=== PATIENT | female | born 1950 | race Caucasian/White ===

== ENCOUNTER 2017-01-09 15:08 | Inpatient (IN) | payer BC ==
[~2017-01-09] VITALS: Ht 152.4 cm; Wt 49.9 kg
[2017-01-09 16:05] VITALS: BP 157/89; PULSE 100; RESP 18
[2017-01-09] MEDS ORDERED: HYDROCODONE/HOMATROPINE 5ML CUP PO PRN (18:00)
[2017-01-09] MEDS ORDERED: MAGNESIUM HYDROXIDE 30ML CUP PO PRN (18:00)
[2017-01-09] MEDS ORDERED: ACETAMINOPHEN 325 MG TAB PO PRN (18:00)
[2017-01-09] MEDS ORDERED: ALPRAZOLAM 0.5 MG TAB PO PRN (18:00)
[2017-01-09] MEDS ORDERED: HYDROCODONE/APAP (10/325) TAB PO PRN (18:00)
[2017-01-09 18:58] LABS: ADD SCAN DIFF NO
[2017-01-09 19:14] LABS: ALBUMIN 4.7 g/dl (3.3-4.9); POTASSIUM 3.2 mmol/L (3.5-5.1)
[2017-01-09 19:16] LABS: CREATININE 0.73 mg/dl (0.44-1.00)
[2017-01-09 19:17] LABS: ALBUMIN/GLOBULIN RATIO 1.34; BILIRUBIN,INDIRECT 1.1 mg/dl (0-1.1); BILIRUBIN,TOTAL 1.1 mg/dl (0.2-1.3); CALCIUM 9.4 mg/dl (8.4-10.2); TOTAL PROTEIN 8.2 g/dl (6.1-8.1)
[2017-01-09 19:28] LABS: CHOL/HDL RATIO 2.4 RATIO
[2017-01-09 19:48] LABS: CARCINOEMBRYONIC ANTIGEN 1.1 ng/ml (0.0-5.0)
[2017-01-09 19:52] LABS: CANCER ANTIGEN 19-9 13.5 U/ml (0.0-37.0)
[2017-01-09 19:53] LABS: THYROID STIMULATING HORMONE 0.952 MIU/L (0.465-4.680)
[2017-01-09 20:42] LABS: TIME 2035
[2017-01-09 21:18] VITALS: BP 146/83; RESP 16
[2017-01-09 22:40] LABS: ADD UMIC NO; URINE BILIRUBIN (Dip) NEGATIVE (NEGATIVE); URINE BLOOD (Dip) NEGATIVE (NEGATIVE); URINE COLOR YELLOW (YELLOW); URINE GLUCOSE (Dip) NEGATIVE (NEGATIVE); URINE KETONES (Dip) TRACE (NEGATIVE); URINE LEUKOCYTE ESTERASE (Dip) NEGATIVE (NEGATIVE); URINE NITRITE (Dip) NEGATIVE (NEGATIVE); URINE TOTAL PROTEIN (Dip) NEGATIVE (NEGATIVE); URINE UROBILINOGEN (Dip) 0.2 E.U./dL (0.1-1.0)
[2017-01-09] MEDS: ZOLPIDEM 5 MG TAB PO PRN (23:12)
[2017-01-10] MEDS ORDERED: PROMETHAZINE/CODEINE 5ML CUP PO PRN (01:30)
--- NOTE | 2017-01-10 03:18 | PN ---
DATE: The patient is admitted today because of severe cough for the past 5 weeks. The patient had a chest x-ray taken which showed a possibility of chronic obstructive bronchopulmonary disease; however, th is did not explain her symptoms, so a CAT scan of her chest was performed which revealed possible in filtrative nodules. The patient has a history of breast cancer and it is suspected that she may hav e a pulmonary metastasis. The patient accordingly is being hospitalized at this time because of inc essant persistent cough which is fatiguing the patient and also to have her see a professional wrestler an d have a definitive diagnosis made as to what these nodules on her lung that are seen on CAT scan. PHYSICAL EXAMINATION GENERAL: The patient is alert and wake, and she feels well except for the cough, but she does feel weak. CHEST: Clear to A and P. HEART: Normal sinus rhythm. ABDOMEN: Liver, kidneys and spleen are not palpable. Bowel sounds are normal. There are no intraa bdominal masses or bruits. EXTREMITIES: No ankle edema. VITAL SIGNS: She is afebrile and her blood pressure is 157/89. LABORATORY DATA: Sodium is 143, potassium is 3.2, chloride is 102, carbon dioxide is 26, BUN is 17, creatinine is 0.73, glucose is 131, calcium is 9.4. TSH is normal. CA19-9 is normal at 13.5. CEA is normal at 1.1. Urine is clear. The patient to be seen by Dr. Carrillo in pulmonary consultation tomorrow and to see what further sebastian t needs to be done to determine the nature of the nodules found in her lung with the CAT scan. Dictated By: IMER MEYERS/HELEN Conf#: [id number] DID#: [id number]
--- NOTE | 2017-01-10 06:13 | RADRPT ---
PROCEDURE: XR Chest. CLINICAL INDICATION: Chest pain TECHNIQUE: A single AP view of the chest was obtained. COMPARISON: None. FINDINGS: No focal airspace opacification, pleural effusion or pneumothorax is seen. There is a 3 mm granuloma within the right lower lobe. The cardiomediastinal silhouette is within normal limits for size. T he osseous structures are unremarkable. IMPRESSION: 1. No radiographic evidence of acute cardiopulmonary disease. 2. Right lower lobe 3 mm granuloma. RPTAT: HH .Stacey Garcia MD, MD Date Time Electronically viewed and signed by .Stacey Garcia MD, on 01/10/2017 06:13 .G/
[2017-01-10 07:39] VITALS: BP 155/82; RESP 18
--- NOTE | 2017-01-10 13:53 | CONS ---
DATE OF ADMISSION: 01/09/2017 DATE OF CONSULTATION: TYPE OF CONSULTATION: Pulmonary. REASON FOR CONSULTATION: Abnormal chest CT. Thank you, Dr. Gleason, for this consultation. HISTORY OF PRESENT ILLNESS: This is a pleasant 66-year-old lady who has a remote history of left br east cancer with lumpectomy and localized radiation performed approximately 15 years ago who present s with a 5 week history of nonproductive cough which has been persistent and has no hemoptysis, no h ematemesis, no fever, no chills. No recent travel history. She has no prior history of TB that she is aware of and has been PPD negative in the past. PAST MEDICAL HISTORY: Breast cancer. SOCIAL HISTORY: She is a nonsmoker, no alcohol, no history of drug use. FAMILY HISTORY: Noncontributory. SYSTEMS REVIEW: A 12-point review of systems negative other than that mentioned above. PHYSICAL EXAMINATION: GENERAL: Well-nourished, well-developed lady, comfortable at rest, talking in full and complete sen tences. Currently afebrile. VITAL SIGNS: Temperature 98, pulse is 79, blood pressure 150/80, O2 saturation 96% on room air. NECK: Supple. No JVD or lymphadenopathy. CARDIAC: S1, S2, no added sounds or murmurs. CHEST: Diminished air entry bilaterally but no rales or wheezes. ABDOMEN: Soft, nontender. No guarding or rebound. EXTREMITIES: No cyanosis, clubbing, edema. NEUROLOGICAL: Grossly intact. No focal deficits. LABORATORY DATA: Chemistry within normal limits. White count was pending at time of this dictation . PPD test is pending reading. Urinalysis unremarkable. TSH unremarkable. CA 19-19 is normal. CE A is also normal as is liver function testing. DIAGNOSTIC STUDIES: Chest CT performed as an outpatient showed multiple tiny nodules throughout the lungs, some reticulation and volume loss in the right base. Otherwise no significant abnormalities needed. IMPRESSION AND PLAN: 1. Multiple nodules in the lung, unclear etiology. Appear infectious on initial CT report. 2. Rule out mycobacterial TB, although this is unlikely given negative PPD. 3. Rule out coccidioidomycosis, serology has been requested. 4. Concern for possible metastatic breast cancer. 5. Differential does include other inflammatory or malignant diseases. PLAN: 1. AFB x3. 2. Await QuantiFERON Gold and PPD result. 3. Await coccidioidomycosis serology. 4. DVT and GI prophylaxis. Ultimately, patient may require bronchoscopy and/or video-assisted lung biopsy. Dictated By: MICHELLE KNOWLES/HELEN Conf#: [id number] DID#: [id number]
[2017-01-10 13:59] LABS: BASOPHILS % 0.5 % (0.0-2.0); EOSINOPHILS # 0.4 10^3/ul (0.0-0.5); HEMATOCRIT 42.4 % (37.0-47.0); HEMOGLOBIN 13.9 g/dl (12.0-16.0); LYMPHOCYTES # 2.8 10^3/ul (0.8-2.9); LYMPHOCYTES % 36.9 % (15.0-51.0); MEAN CORPUSCULAR HEMOGLOBIN 29.6 pg (29.0-33.0); MEAN CORPUSCULAR HGB CONC 32.8 g/dl (32.0-37.0); MEAN CORPUSCULAR VOLUME 90.2 fl (82.0-101.0); MEAN PLATELET VOLUME 11.6 fl (7.4-10.4); MONOCYTE # 0.4 10^3/ul (0.3-0.9); MONOCYTES % 5.2 % (0.0-11.0); NEUTROPHILS % 52.1 % (39.0-77.0); PLATELET COUNT 292 10^3/UL (140-415); RED CELL DISTRIBUTION WIDTH 13.1 % (11.5-14.5); WHITE BLOOD COUNT 7.6 10^3/ul (4.8-10.8)
[2017-01-10] MEDS: ZOLPIDEM 5 MG TAB PO PRN (21:57)
--- NOTE | 2017-01-11 01:28 | PN ---
DATE: SUBJECTIVE: The patient awake and alert. Cough has stopped. She feels well. Appetite is good. OBJECTIVE: CHEST: Clear to A and P. HEART: Normal sinus rhythm. No murmurs. ABDOMEN: Liver, kidneys, spleen are not palpable. HEENT: Clear. EXTREMITIES: No ankle edema. VITAL SIGNS: The patient is afebrile, blood pressure 157/89, pulse 96. Pulse oximetry 96, 95, 96 o n room air. The patient was seen by Dr. Carrillo in respiratory consultation. His note is available for review. The etiology of her pulmonary nodules is still uncertain. It is thought to probably be inflammator y, but the possibility of malignancy must be entertained. Hemoglobin 13.9, hematocrit 42.4, white blood cell count 7600, platelets normal. Sedimentation rate 27. Sodium 143, potassium 3.2, chloride 102, carbon dioxide 26, BUN 17, creatinine 0.73, glucose 1 31, calcium 9.4. Liver function tests all normal. CEA is normal. CA 19-9 is normal. UA is normal . TB skin test is still negative. Blood culture: No growth after 1 day. Chest x-ray: No radiological evidence of acute cardiopulmonary disease. Right lower lobe 3 mm gran uloma. Dictated By: IMER MEYERS/HELEN Conf#: [id number] DID#: [id number]
[2017-01-11 06:09] LABS: POTASSIUM 3.9 mmol/L (3.5-5.1)
[2017-01-11 06:12] LABS: CALCIUM 8.9 mg/dl (8.4-10.2); CREATININE 0.77 mg/dl (0.44-1.00)
[2017-01-11 07:37] VITALS: BP 152/81; RESP 20
--- NOTE | 2017-01-11 14:40 | CONS ---
Date/Time of Note Date/Time of Note DATE: 01/11/17 TIME: 14:39 Consult Date/Type/Reason Admit Date/Time Jan 09, 2017 at 15:08 Initial Consult Date Type of Consultation: pulmonary Subjective Patient states she is better today less shortness of breath less cough Objective Vital Signs Date Time Temp Pulse Resp B/P Pulse Ox O2 Delivery O2 Flow Rate FiO2 01/11/17 07:37 98.0 66 20 152/81 95 01/09/17 16:05 Room Air Intake and Output 01/10/17 01/10/17 01/11/17 15:00 23:00 07:00 Intake Total 860 ml 400 ml Balance 860 ml 400 ml Exam PHYSICAL EXAMINATION: GENERAL: Well-nourished, well-developed lady, comfortable at rest, talking in full and complete sentences. Currently afebrile. VITAL SIGNS: As above NECK: Supple. No JVD or lymphadenopathy. CARDIAC: S1, S2, no added sounds or murmurs. CHEST: Diminished air entry bilaterally but no rales or wheezes. ABDOMEN: Soft, nontender. No guarding or rebound. EXTREMITIES: No cyanosis, clubbing, edema. NEUROLOGICAL: Grossly intact. No focal deficits. Results/Medications Result Diagram: 01/09/17 1730 01/11/17 0437 Results 24 hrs Laboratory Tests Test 01/11/17 04:37 Sodium Level 141 Potassium Level 3.9 Chloride Level 105 Carbon Dioxide Level 27 Anion Gap 13 Blood Urea Nitrogen 18 Creatinine 0.77 Glucose Level 108 Calcium Level 8.9 Medications Current Medications Alprazolam (Xanax) 0.5 mg Q8 PRN PO ANXIETY; Start 01/09/17 at 18:00 Zolpidem Tartrate (Ambien) 10 mg HS PRN PO SLEEP Last administered on 01/10/17t 21:57; Admin Dose 10 MG; Start 01/09/17 at 18:00 Magnesium Hydroxide (Milk Of Mag) 30 ml DAILY PRN PO CONSTIPATION; Start at 18:00 Acetaminophen (Tylenol Tab) 650 mg Q4H PRN PO PAIN AND OR ELEVATED TEMP; Start 01/09/17 at 18:00 Acetaminophen/ Hydrocodone Bitart ([place] (10/325)) 1 tab Q4H PRN PO PAIN; Start 01/09/17 at 18:00 Hydrocodone Bit/ Homatropine Methylb (Hycodan Liquid) 5 ml Q12 PRN PO COUGH Last administered on 01/09/17t 19:41; Admin Dose 5 ML; Start 01/09/17 at 18:00 Promethazine HCl/ Codeine (Phenergan/ Codeine) 5 ml Q4H PRN PO COUGH; Start 01/10/17 at 01:30 Levofloxacin (Levaquin) 500 mg DAILY@06 PO ; Start 01/11/17 at 14:00; Stop at 06:01 Assessment/Plan Chief Complaint/Hosp Course IMPRESSION AND PLAN: 1. Multiple nodules in the lung, unclear etiology. CT report also demonstrates calcified lymph nodes 2. Rule out mycobacterial TB, although this is unlikely given negative PPD. 3. Rule out coccidioidomycosis, serology has been requested. 4. Concern for possible metastatic breast cancer. 5. Differential does include other inflammatory or malignant diseases. PLAN: 1. AFB x3. 2. Await QuantiFERON Gold and PPD result. 3. Await coccidioidomycosis serology. 4. DVT and GI prophylaxis. 5. Empiric antibiotics 6. Repeat CT chest in a.m. Problems: MICHELLE MAURICE MD, [facility] Jan 11, 2017 14:40
[2017-01-11] MEDS: LEVOFLOXACIN 500 MG TAB PO SCH (14:43)
--- NOTE | 2017-01-11 15:37 | RADRPT ---
Vent Rate: 69 bpm RR Interval: 0 msec SC Interval: 178 msec QRS Duration: 70 msec QT Interval: 390 msec QTC Interval: 417 msec P-R-T [place]: 63 - 50 - 51 degrees Normal sinus rhythm PRWP V1-V3 Electronically Signed By: Isidoro Maosn [id number]
[2017-01-11 20:04] VITALS: BP 140/78; RESP 19
[2017-01-11 21:53] LABS: FORTY EIGHT HOUR READING 0 mm (0-9)
[2017-01-11] MEDS: ZOLPIDEM 5 MG TAB PO PRN (22:32)
[2017-01-11] MEDS: POTASSIUM CHLORIDE (SR) 20 MEQ TAB PO SCH (23:00)
[2017-01-12] MEDS: LEVOFLOXACIN 500 MG TAB PO SCH (05:57)
--- NOTE | 2017-01-12 06:22 | PN ---
DATE: 01/11/2017 SUBJECTIVE: The patient is no longer coughing. She appears well. The patient is no longer taking c ough medicine; however, she has been placed on Levaquin. We are awaiting the results of some culture s and patient probably will be going home tomorrow, which is Saturday. The patient was seen by Dr. Daiana green, her service employee, in consultation. VITAL SIGNS: The patient is afebrile, blood pressure 152/81, pulse 80, respiration 20 per minute. LABORATORY DATA: Electrolytes: Sodium 141, potassium 3.9, chloride 105, carbon dioxide 27, BUN 18, creatinine 0.77, glucose 108, calcium 8.9. Urine is negative. PPD test is negative so far. The patient will probably have another CAT scan of the chest to see if there is any progression or r egression of her lesions. The patient appears to be doing well at this time. Dictated By: IMER MEYERS/HELEN Conf#: [id number] DID#: [id number]
[2017-01-12 07:45] VITALS: BP 149/86; RESP 16
[2017-01-12] MEDS: POTASSIUM CHLORIDE (SR) 20 MEQ TAB PO SCH (08:39)
--- NOTE | 2017-01-12 11:31 | RADRPT ---
PROCEDURE: CT chest without contrast. CLINICAL INDICATION: Tissue nodules TECHNIQUE: CT scan of the chest without contrast was performed on a multi-slice CT scanner. The p atient was scanned without administration of intravenous contrast. Coronal and sagittal reformatted images were obtained from the axial source images. DLP vol 164.7 mGy CTDI 4.0 mGy-cm COMPARISON: None. FINDINGS: There is an area of clustered peribronchial ground-glass nodules is seen within the superior segment of the left lower lobe of mild severity. There is also a focus of localized ground-glass that jessica ures 1.8 cm in diameter within the right upper lobe and the perihilar space. A small focus of groun d-glass clustered nodules is seen within the posterior right lower lobe as well. Trace bilateral friend bpleural scarring is present. There is a calcified granuloma in the right lower lobe. The remainde r of the lungs are otherwise clear without consolidation or effusion or pneumothorax. Aortic and coronary artery atherosclerotic calcifications are present. There are no enlarged axilla ry or mediastinal lymph nodes. Calcified right hilar and mediastinal lymph nodes are present. There is no acute upper abdominal abnormality. Degenerative changes are seen within the thoracic sp ine and shoulders with no acute osseous abnormality. IMPRESSION: There are multifocal areas of peribronchial ground-glass nodules consistent with bronchiolitis. The re is also a focal area of oval-shaped ground-glass within the right upper lobe which is indetermina te and a followup CT is recommended after 3 months to reevaluate. Findings of prior granulomatous disease. Atherosclerotic disease is present. RPTAT: AA .Gerald Bailey MD, MD Date Time Electronically viewed and signed by .Gerald Bailey MD, MD on 01/12/2017 11:31 .J/
--- NOTE | 2017-01-12 12:15 | PN ---
DATE: 01/12/2017 SUBJECTIVE: Follow up on lung nodules. History of breast cancer. The patient is breathing comfort ably. Denies any chest pain. Denies cough or hemoptysis. No reported abdominal pain. The patient did not have any temperature spike. The patient remains awake, alert. PHYSICAL EXAMINATION: GENERAL: The patient is conscious, awake, alert. VITAL SIGNS: Temperature 98.5, pulse 74, respirations 16, blood pressure 149/66, O2 saturation 97% on room air. HEENT: Conjunctivae and lids normal. Oropharynx clear. NECK: Supple. No mass, no thyromegaly. CHEST: Fairly clear. No use of accessory muscles. CARDIOVASCULAR: Regular rate and rhythm. S1, S2 normal. No murmur, gallop, or rub. ABDOMEN: Soft, nondistended, nontender. Bowel sounds present. EXTREMITIES: No leg edema. No clubbing, cyanosis. NEUROLOGIC: The patient is awake, alert, fairly oriented with no gross focal deficit. LABORATORY DATA: WBC 7.6, hemoglobin 13.9, platelets 292. Sodium 141, potassium 3.9, BUN 18, creat inine 0.7, glucose 108, calcium 8.9. TSH 0.9. IMPRESSION: Pulmonary nodules of unclear etiology. Rule out tuberculosis, rule out cocci and rule out metastatic breast cancer versus inflammatory etiology. Workup underway. Chest CT is being done today. Outpatient chest CT revealed multiple tiny nodules. AFB stain pending QuantiFERON Gold pen ding. Further recommendations will depend on patient's hospital course and recommendations from Dr. Carrillo who is being consulted from pulmonary standpoint. Dictated By: MARINA AZUL/HELEN Conf#: [id number] DID#: [id number]
--- NOTE | 2017-01-12 17:57 | CONS ---
Date/Time of Note Date/Time of Note DATE: 01/12/17 TIME: 17:55 Consult Date/Type/Reason Admit Date/Time Jan 09, 2017 at 15:08 Initial Consult Date Type of Consultation: pulmonary Subjective No events. CT chest reviewed in detail. Objective Vital Signs Date Time Temp Pulse Resp B/P Pulse Ox O2 Delivery O2 Flow Rate FiO2 01/12/17 07:45 98.5 74 16 149/86 97 01/09/17 16:05 Room Air Intake and Output 01/11/17 01/11/17 01/12/17 15:00 23:00 07:00 Intake Total 1560 ml 1200 ml Balance 1560 ml 1200 ml Exam HEENT: Neck supple; no JVD; no LAD CVS: RRR, S1 and S2 CHEST: Clear ABD: Soft, NT, + BS EXT: No c/c/e Results/Medications Result Diagram: 01/09/17 1730 01/11/17 0437 Medications Current Medications Alprazolam (Xanax) 0.5 mg Q8 PRN PO ANXIETY; Start 01/09/17 at 18:00 Zolpidem Tartrate (Ambien) 10 mg HS PRN PO SLEEP Last administered on 01/11/17 22:32; Admin Dose 10 MG; Start 01/09/17 at 18:00 Magnesium Hydroxide (Milk Of Mag) 30 ml DAILY PRN PO CONSTIPATION Last administered on 01/11/17 22:32; Admin Dose 30 ML; Start 01/09/17 at 18:00 Acetaminophen (Tylenol Tab) 650 mg Q4H PRN PO PAIN AND OR ELEVATED TEMP; Start 01/09/17 at 18:00 Acetaminophen/ Hydrocodone Bitart ([place] (10/325)) 1 tab Q4H PRN PO PAIN; Start 01/09/17 at 18:00 Hydrocodone Bit/ Homatropine Methylb (Hycodan Liquid) 5 ml Q12 PRN PO COUGH Last administered on 01/09/17 19:41; Admin Dose 5 ML; Start 01/09/17 at 18:00 Promethazine HCl/ Codeine (Phenergan/ Codeine) 5 ml Q4H PRN PO COUGH; Start 01/10/17 at 01:30 Levofloxacin (Levaquin) 500 mg DAILY@06 PO Last administered on 4/8/17at 05:57 ; Admin Dose 500 MG; Start 01/11/17 at 14:00; Stop 01/17/17 at 06:01 Potassium Chloride (Klor-Con 20) 20 meq DAILY PO Last administered on 01/12/17 08:39; Admin Dose 20 MEQ; Start 01/11/17 at 23:00 Assessment/Plan Additional Assessment/Plan IMP: 1. LLL focal tree-in-bud micronodules: c/w infectious bronchiolitis (ie. aspiration, atypical bacterial infxn, or ESTEPHANIA) 2. RUL GGO RECS: 1. Would suggest outpatient CT in 3 months for f/u of RUL GGO 2. F/U AFB cultures for ESTEPHANIA 3. D/C planning LOPEZ SNYDER MD Jan 12, 2017 17:57
[2017-01-12 20:06] VITALS: BP 145/93; RESP 17
[2017-01-12 21:17] LABS: SEVENTY TWO HOUR READING 0 mm (0-9)
[2017-01-12] MEDS: ZOLPIDEM 5 MG TAB PO PRN (23:05)
[2017-01-13] MEDS: LEVOFLOXACIN 500 MG TAB PO SCH (05:29)
[2017-01-13 07:20] VITALS: BP 146/87; RESP 18
[2017-01-13] MEDS: POTASSIUM CHLORIDE (SR) 20 MEQ TAB PO SCH (08:59)
--- NOTE | 2017-01-13 15:30 | CONS ---
Date/Time of Note Date/Time of Note DATE: 01/13/17 TIME: 15:29 Consult Date/Type/Reason Admit Date/Time Jan 09, 2017 at 15:08 Type of Consultation: pulmonary Subjective No events. No c/o Objective Vital Signs Date Time Temp Pulse Resp B/P Pulse Ox O2 Delivery O2 Flow Rate FiO2 01/13/17 07:20 98.0 74 18 146/87 98 01/09/17 16:05 Room Air Intake and Output 01/12/17 01/12/17 01/13/17 15:00 23:00 07:00 Intake Total 1060 ml 850 ml Balance 1060 ml 850 ml Exam HEENT: Neck supple; no JVD; no LAD CVS: RRR, S1 and S2 CHEST: Clear ABD: Soft, NT, + BS EXT: No c/c/e Results/Medications Result Diagram: 01/09/17 1730 01/11/17 0437 Medications Current Medications Alprazolam (Xanax) 0.5 mg Q8 PRN PO ANXIETY; Start 01/09/17 at 18:00 Zolpidem Tartrate (Ambien) 10 mg HS PRN PO SLEEP Last administered on 01/12/17 23:05; Admin Dose 10 MG; Start 01/09/17 at 18:00 Magnesium Hydroxide (Milk Of Mag) 30 ml DAILY PRN PO CONSTIPATION Last administered on 01/11/17 22:32; Admin Dose 30 ML; Start 01/09/17 at 18:00 Acetaminophen (Tylenol Tab) 650 mg Q4H PRN PO PAIN AND OR ELEVATED TEMP; Start 01/09/17 at 18:00 Acetaminophen/ Hydrocodone Bitart ([place] (10/325)) 1 tab Q4H PRN PO PAIN; Start 01/09/17 at 18:00 Hydrocodone Bit/ Homatropine Methylb (Hycodan Liquid) 5 ml Q12 PRN PO COUGH Last administered on 01/09/17 19:41; Admin Dose 5 ML; Start 01/09/17 at 18:00 Promethazine HCl/ Codeine (Phenergan/ Codeine) 5 ml Q4H PRN PO COUGH; Start 01/10/17 at 01:30 Levofloxacin (Levaquin) 500 mg DAILY@06 PO Last administered on 01/13/17 05:29 ; Admin Dose 500 MG; Start 01/11/17 at 14:00; Stop 01/17/17 at 06:01 Potassium Chloride (Klor-Con 20) 20 meq DAILY PO Last administered on 01/13/17t 08:59; Admin Dose 20 MEQ; Start 01/11/17 at 23:00 Assessment/Plan Additional Assessment/Plan IMP: 1. LLL focal tree-in-bud micronodules: c/w infectious bronchiolitis (ie. aspiration, atypical bacterial infxn, or ESTEPHANIA) 2. RUL GGO--will need to follow with outpatient CT chest in 3 months RECS: 1. Would suggest outpatient CT in 3 months for f/u of RUL GGO 2. F/U AFB cultures for ESTEPHANIA 3. D/C planning 4. D/C isolation LOPEZ SNYDER MD Jan 13, 2017 15:30
--- NOTE | 2017-01-13 18:28 | DS ---
Date/Time of Note Date/Time of Note DATE: 01/13/17 TIME: 18:28 Discharge Summary Admission/Discharge Info Admit Date/Time Jan 09, 2017 at 15:08 Discharge Date/Time Hospital Course IMPRESSION AND PLAN: 1. Multiple nodules in the lung, unclear etiology. CT report also demonstrates calcified lymph nodes 2. Rule out mycobacterial TB, although this is unlikely given negative PPD. 3. Rule out coccidioidomycosis, serology has been requested. 4. Concern for possible metastatic breast cancer. 5. Differential does include other inflammatory or malignant diseases. PLAN: 1. AFB x3. 2. Await QuantiFERON Gold and PPD result. 3. Await coccidioidomycosis serology. 4. DVT and GI prophylaxis. 5. Empiric antibiotics 6. Repeat CT chest in a.m. Home Meds No Active Prescriptions or Reported Meds HERVE MOSS Jan 13, 2017 18:28
--- NOTE | 2017-01-13 18:28 | PDOCDIS ---
Discharge Instructions CONDITION Patient Condition: Stable HOME CARE INSTRUCTIONS: Diet Instructions: RegularSpecial Diet: Regular ACTIVITY: Activity Restrictions: Slowly Increase Activity Rest between Activity Avoid heavy lifting FOLLOW UP/APPOINTMENTS Appointments FU with primary MD x 1 week fFU with Pulmonar MD as recommended- to follow with outpatient CT chest in 3 months HERVE MOSS Jan 13, 2017 18:28
[2017-01-13] MEDS ORDERED: LEVO500T10 PO (18:44)
[2017-01-13] MEDS ORDERED: POTA20TA15 PO (18:54)
--- NOTE | 2017-01-13 18:55 | DS ---
Date/Time of Note Date/Time of Note DATE: 01/13/17 TIME: 18:55 Discharge Summary Admission/Discharge Info Admit Date/Time Jan 09, 2017 at 15:08 Discharge Date/Time Hospital Course IMPRESSION AND PLAN: 1. Multiple nodules in the lung, unclear etiology. CT report also demonstrates calcified lymph nodes 2. Rule out mycobacterial TB, although this is unlikely given negative PPD. 3. Rule out coccidioidomycosis, serology has been requested. 4. Concern for possible metastatic breast cancer. 5. Differential does include other inflammatory or malignant diseases. PLAN: 1. AFB x3. 2. Await QuantiFERON Gold and PPD result. 3. Await coccidioidomycosis serology. 4. DVT and GI prophylaxis. 5. Empiric antibiotics 6. Repeat CT chest in a.m. Home Meds Active Scripts Potassium Chloride* (K-Dur*) 20 Meq Tab.prt.sr, 20 MEQ PO DAILY for 30 Days Prov:HERVE MOSS 01/13/17 Levofloxacin* (Levofloxacin*) 500 Mg Tablet, 500 MG PO DAILY@06 for 5 Days, TAB Prov:HERVE MOSS 01/13/17 HERVE MOSS Jan 13, 2017 18:55
[2017-01-13 19:52] VITALS: BP 137/77; RESP 18
[2017-01-14 18:41] LABS: TB-NIL 0.02 IU/mL
== END 2017-01-13 19:54 | disposition home or self-care (01) | DRG 204 ==
LOC: PP2 15:08
DX: R05 Cough (principal); C78.00 Secondary malignant neoplasm of unspecified lung; A15.0 Tuberculosis of lung; B38.2 Pulmonary coccidioidomycosis, unspecified; R91.8 Other nonspecific abnormal finding of lung field; Z85.3 Personal history of malignant neoplasm of breast; I89.8 Other specified noninfective disorders of lymphatic vessels and lymph nodes
CPT/HCPCS: 71010; 71250; 80048; 80053; 80061; 81003; 82378; 84443; 85025; 85651; 86300; 86301; 86480; 86580; 86635; 87040; 87070; 87102; 87116; 93005

== ENCOUNTER → 2018-06-02 | Outpatient (CLI) | END | disposition home or self-care (01) ==

== ENCOUNTER → 2018-06-16 | Outpatient (CLI) | END | disposition home or self-care (01) ==